=== PATIENT | male | born 1970 | race Caucasian/White ===

== ENCOUNTER 2016-12-02 17:26 | Emergency (ER) | payer OTHER ==
--- NOTE | 2016-12-02 18:28 | ED CLINICAL REPORT ---
Clinical Report - Physicians/Mid Levels [facility] [address] [place] [address] 12/02/2016 17:26 [id number] Time Seen: 17:42 Dec 02 2016. Arrived- By private vehicle. Historian- patient. HISTORY OF PRESENT ILLNESS Chief Complaint: Injury to right knee. The injury happened just prior to arrival. Occurred at home. The patient sustained a laceration from a saw. Patient is experiencing mild pain. No other injury. REVIEW OF SYSTEMS The patient sustained a laceration. No swelling, tingling, weakness, numbness or suspected foreign body. He has no pain on weight bearing. All systems otherwise negative, except as recorded above. PAST HISTORY Tetanus immunization status is unknown. Problems: no known problems. Medications: FLUoxetine HCl Oral 20 mg, at bedtime. Simvastatin Oral 20 mg, daily. Allergies: No Known Drug Allergy. ADDITIONAL NOTES The nursing notes have been reviewed. PHYSICAL EXAM Vital Signs: 12/02/2016 17:35 BP: 107/84. HR: 84. RR: 18. O2 saturation: 97%. Temp: 98.5 F. Pain level now: 0/10. Appearance: Alert. No acute distress. Eyes: Eyes normal inspection. Neck: Normal inspection. CVS: Normal heart rate and rhythm. Respiratory: No respiratory distress. Skin: Skin warm. Normal skin color. Extremities: Left knee: mild tenderness and subcutaneous laceration. SEE LACERATION PROCEDURE NOTE. Gait: Normal gait. Neuro, Vascular and Tendons: Vascular status intact. Sensation intact. Motor intact. Neuro: Oriented X 3. No motor deficit. No sensory deficit. PROGRESS AND PROCEDURES Laceration Repair: Location: left knee. Length: 7 cm. Complexity: simple (local anesthesia used and sutured). Wound depth/shape- subcutaneous and linear. Wound is clean. Distal neuro/vascular/tendon status normal. Local anesthesia provided using 2% lidocaine. Prepped with Hibiclens. Wound explored, cleansed, irrigated and examined to the base in bloodless field extensively with normal saline. Closure of skin: interrupted 4-0 (9 sutures). Post-procedure: he is stable and there are no complications. Bleeding is controlled and neuro-vascular status is intact distal to the wound. Dressing applied. Tetanus immunization up-to-date. Estimated blood loss: 1 mL. Course of Care: Tdap Patient is stable. Patient/family counseled. Disposition: Discharged. Condition: stable and improved. CLINICAL IMPRESSION Single deep laceration to the left knee.No foreign body present. INSTRUCTIONS Protect wound and keep wound area clean. Change dressing twice daily. Keep wounds dry. You may wash wounds briefly, then dry. Apply neosporin twice daily. Sutures should be removed in ten days. You may walk and bear weight as tolerated. (Avoid bending the knee until stitches removed.). Warnings: TETANUS: You were given a tetanus shot during your visit. Make a note for future reference. GENERAL WARNINGS: Return or contact your physician immediately if your condition worsens or changes unexpectedly, if not improving as expected, or if other problems arise. Your Current Medications: CONTINUE TAKING THE FOLLOWING MEDICATIONS: FLUoxetine HCl Oral : 20 mg at bedtime. Simvastatin Oral : 20 mg daily. OTC Medications: Acetaminophen (available over the counter): take according to label instructions. Follow-up: Follow up with your doctor in ten days. Call for an appointment. Understanding of the discharge instructions verbalized by patient and family. (Electronically signed by Henry Lee MD 12/05/2016 23:48)
--- NOTE | 2016-12-02 18:28 | ED NURSING NOTES ---
Clinical Report - Nurses [facility] [address] [place] [address] 12/02/2016 17:26 Patient: KASEY CASTRO TRIAGE Acuity: LEVEL 4. Chief Complaint: INJURY TO LEFT KNEE. --17:40 Christy Caicedo R.N. 17:35 12/02/16. BP: 107/84. HR: 84. RR: 18. O2 saturation: 97%. Temp: 98.5 F. Pain level now: 0/10. --17:40 Christy Caicedo R.N. Weight: 90.7 kg stated. Height/Length: 72 inches Per Patient. BMI: 27.1. --17:39 Christy Caicedo R.N. Medications FLUoxetine HCl Oral 20 mg, at bedtime. Simvastatin Oral 20 mg, daily. --17:38 Christy Caicedo R.N. Allergies No Known Drug Allergy. --17:37 Christy Caicedo R.N. History Arrived by private vehicle. Historian: patient. Accompanied by spouse. This occurred just prior to arrival. He sustained a laceration (2 inch lac to left knee from saw. good distal CSM's). No trouble walking. PAST MEDICAL HX: Negative. Tetanus status: unknown. SURGERY HX: Right and left knee surgery. SOCIAL HX: Never smoker. No alcohol use or drug use. --17:40 Christy Caicedo R.N. PROBLEMS: no known problems. Interventions ID band on patient. To treatment room. --17:40 Christy Caicedo R.N. PHYSICAL ASSESSMENT 17:35. GENERAL / NEURO / PSYCH: Oriented X 4. Alert. Appears in no acute distress. EXTREMITIES: Capillary refill is less than 2 seconds in the extremities. Extremity pulses are within normal limits. Extremities exhibit normal ROM. Neuro-vascular status intact to the extremity. Normal gait. Left knee: 3.0 cm laceration with controlled bleeding. No deformity. No limitation in ROM. SKIN: Skin is warm and dry. --18:24 Christy Caicedo R.N. NURSING PROGRESS NOTES 17:40 12/02/16. Patient gowned. Reassurance given. Patient identifiers checked. Call light placed in reach. Side rails up. Bed placed in lowest position. Patient ready for evaluation- chart flagged. --17:40 Christy Caicedo R.N. 17:40. Care transferred and report given (SRINIVASA Dinh). --18:24 Christy Caicedo R.N. 18:27 12/02/2016 [id number] PERTUSSIS IM 0.5 mL given. (Lot#: [id number], expiration date: 08/02/2018, Range Scientist: sanofi pasteur). Given in the right deltoid. Allergies verified and confirmed 5 rights. --18:33 Marie Rodgers R.N. 18:24 12/02/16. BP: 123/78. HR: 83. RR: 18. O2 saturation: 96%. Temp: 98.4 F. Pain level now 0/10. --18:41 Marie Rodgers R.N. Applied dressing consisting of 4x4 gauze, following the application of antibiotic ointment. Secured with kerlix. --18:42 Marie Rodgers R.N. DISPOSITION / DISCHARGE Departure time: 18:43 Dec 02 2016. Condition at departure: improved. No learning barriers present. Discharge instructions provided and reviewed with the patient. Reviewed warnings. Reviewed medication(s). Treatments reviewed. Reviewed referrals. Patient verbalized understanding. Written instructions provided in Swedish. The patient was discharged home and accompanied by spouse. He left the Emergency Department ambulatory and via private vehicle. Family member driving. --18:43 Marie Rodgers R.N. 18:24 12/02/16. BP: 123/78. HR: 83. RR: 18. O2 saturation: 96%. Temp: 98.4 F. Pain level now 0/10. --18:43 Marie Rodgers R.N. Locked/Released at 12/02/2016 19:08 by Marie Rodgers R.N.
--- NOTE | 2016-12-02 18:28 | ED ORDER SUMMARY ---
..... Patient: KASEY CASTRO OrderSheet [facility] VisitID: [id number] [address] [place] [address] 46y, M Registration Date/Time: 12/02/2016 ORDER SHEET Weight: 90.7 kg (stated) Allergies: No Known Drug Allergy GENERAL ORDERS: MEDICATION ORDERS: Qbqeewj-Hvoxsz-Ivvcv Pertussis IM 0.5 mL (NOW) (18:26 12/02/2016 LWhalen R.N. verbal order read back to Peter ONEAL) (18:33 LWhalen R.N.) IV FLUIDS: ORDER SHEET NOTES: [Electronically signed by Marie Rodgers R.N. (19:08 12/02/2016)] [Electronically signed by Henry Lee MD (23:48 12/05/2016)] [Electronically locked/signed by Marie Rodgers R.N. (19:08 12/02/2016)]
--- NOTE | 2016-12-02 18:28 | ED CLINICAL REPORT ---
Clinical Report - Physicians/Mid Levels [facility] [address] [place] [address] 12/02/2016 17:26 [id number] Time Seen: 17:42 Dec 02 2016. Arrived- By private vehicle. Historian- patient. HISTORY OF PRESENT ILLNESS Chief Complaint: Injury to right knee. The injury happened just prior to arrival. Occurred at home. The patient sustained a laceration from a saw. Patient is experiencing mild pain. No other injury. REVIEW OF SYSTEMS The patient sustained a laceration. No swelling, tingling, weakness, numbness or suspected foreign body. He has no pain on weight bearing. All systems otherwise negative, except as recorded above. PAST HISTORY Tetanus immunization status is unknown. Problems: no known problems. Medications: FLUoxetine HCl Oral 20 mg, at bedtime. Simvastatin Oral 20 mg, daily. Allergies: No Known Drug Allergy. ADDITIONAL NOTES The nursing notes have been reviewed. PHYSICAL EXAM Vital Signs: 12/02/2016 17:35 BP: 107/84. HR: 84. RR: 18. O2 saturation: 97%. Temp: 98.5 F. Pain level now: 0/10. Appearance: Alert. No acute distress. Eyes: Eyes normal inspection. Neck: Normal inspection. CVS: Normal heart rate and rhythm. Respiratory: No respiratory distress. Skin: Skin warm. Normal skin color. Extremities: Left knee: mild tenderness and subcutaneous laceration. SEE LACERATION PROCEDURE NOTE. Gait: Normal gait. Neuro, Vascular and Tendons: Vascular status intact. Sensation intact. Motor intact. Neuro: Oriented X 3. No motor deficit. No sensory deficit. PROGRESS AND PROCEDURES Laceration Repair: Location: left knee. Length: 7 cm. Complexity: simple (local anesthesia used and sutured). Wound depth/shape- subcutaneous and linear. Wound is clean. Distal neuro/vascular/tendon status normal. Local anesthesia provided using 2% lidocaine. Prepped with Hibiclens. Wound explored, cleansed, irrigated and examined to the base in bloodless field extensively with normal saline. Closure of skin: interrupted 4-0 (9 sutures). Post-procedure: he is stable and there are no complications. Bleeding is controlled and neuro-vascular status is intact distal to the wound. Dressing applied. Tetanus immunization up-to-date. Estimated blood loss: 1 mL. Course of Care: Tdap Patient is stable. Patient/family counseled. Disposition: Discharged. Condition: stable and improved. CLINICAL IMPRESSION Single deep laceration to the left knee.No foreign body present. INSTRUCTIONS Protect wound and keep wound area clean. Change dressing twice daily. Keep wounds dry. You may wash wounds briefly, then dry. Apply neosporin twice daily. Sutures should be removed in ten days. You may walk and bear weight as tolerated. (Avoid bending the knee until stitches removed.). Warnings: TETANUS: You were given a tetanus shot during your visit. Make a note for future reference. GENERAL WARNINGS: Return or contact your physician immediately if your condition worsens or changes unexpectedly, if not improving as expected, or if other problems arise. Your Current Medications: CONTINUE TAKING THE FOLLOWING MEDICATIONS: FLUoxetine HCl Oral : 20 mg at bedtime. Simvastatin Oral : 20 mg daily. OTC Medications: Acetaminophen (available over the counter): take according to label instructions. Follow-up: Follow up with your doctor in ten days. Call for an appointment. Understanding of the discharge instructions verbalized by patient and family. (Electronically signed by Henry Lee MD 12/05/2016 23:48)
--- NOTE | 2016-12-02 18:28 | ED NURSING NOTES ---
Clinical Report - Nurses [facility] [address] [place] [address] 12/02/2016 17:26 Patient: KASEY CASTRO TRIAGE Acuity: LEVEL 4. Chief Complaint: INJURY TO LEFT KNEE. --17:40 Christy Caicedo R.N. 17:35 12/02/16. BP: 107/84. HR: 84. RR: 18. O2 saturation: 97%. Temp: 98.5 F. Pain level now: 0/10. --17:40 Christy Caicedo R.N. Weight: 90.7 kg stated. Height/Length: 72 inches Per Patient. BMI: 27.1. --17:39 Christy Caicedo R.N. Medications FLUoxetine HCl Oral 20 mg, at bedtime. Simvastatin Oral 20 mg, daily. --17:38 Christy Caicedo R.N. Allergies No Known Drug Allergy. --17:37 Christy Caicedo R.N. History Arrived by private vehicle. Historian: patient. Accompanied by spouse. This occurred just prior to arrival. He sustained a laceration (2 inch lac to left knee from saw. good distal CSM's). No trouble walking. PAST MEDICAL HX: Negative. Tetanus status: unknown. SURGERY HX: Right and left knee surgery. SOCIAL HX: Never smoker. No alcohol use or drug use. --17:40 Christy Caicedo R.N. PROBLEMS: no known problems. Interventions ID band on patient. To treatment room. --17:40 Christy Caicedo R.N. PHYSICAL ASSESSMENT 17:35. GENERAL / NEURO / PSYCH: Oriented X 4. Alert. Appears in no acute distress. EXTREMITIES: Capillary refill is less than 2 seconds in the extremities. Extremity pulses are within normal limits. Extremities exhibit normal ROM. Neuro-vascular status intact to the extremity. Normal gait. Left knee: 3.0 cm laceration with controlled bleeding. No deformity. No limitation in ROM. SKIN: Skin is warm and dry. --18:24 Christy Caicedo R.N. NURSING PROGRESS NOTES 17:40 12/02/16. Patient gowned. Reassurance given. Patient identifiers checked. Call light placed in reach. Side rails up. Bed placed in lowest position. Patient ready for evaluation- chart flagged. --17:40 Christy Caicedo R.N. 17:40. Care transferred and report given (SRINIVASA Dinh). --18:24 Christy Caicedo R.N. 18:27 12/02/2016 [id number]-HMEKG PERTUSSIS IM 0.5 mL given. (Lot#: [id number], expiration date: 08/02/2018, Test Design Engineer: sanofi pasteur). Given in the right deltoid. Allergies verified and confirmed 5 rights. --18:33 Marie Rodgers R.N. 18:24 12/02/16. BP: 123/78. HR: 83. RR: 18. O2 saturation: 96%. Temp: 98.4 F. Pain level now 0/10. --18:41 Marie Rodgers R.N. Applied dressing consisting of 4x4 gauze, following the application of antibiotic ointment. Secured with kerlix. --18:42 Marie Rodgers R.N. DISPOSITION / DISCHARGE Departure time: 18:43 Dec 02 2016. Condition at departure: improved. No learning barriers present. Discharge instructions provided and reviewed with the patient. Reviewed warnings. Reviewed medication(s). Treatments reviewed. Reviewed referrals. Patient verbalized understanding. Written instructions provided in Greek. The patient was discharged home and accompanied by spouse. He left the Emergency Department ambulatory and via private vehicle. Family member driving. --18:43 Marie Rodgers R.N. 18:24 12/02/16. BP: 123/78. HR: 83. RR: 18. O2 saturation: 96%. Temp: 98.4 F. Pain level now 0/10. --18:43 Marie Rodgers R.N. Locked/Released at 12/02/2016 19:08 by Marie Rodgers R.N.
--- NOTE | 2016-12-02 18:28 | ED ORDER SUMMARY ---
..... Patient: KASEY CASTRO OrderSheet [facility] VisitID: [id number] [address] [place] [address] 46y, M Registration Date/Time: 12/02/2016 ORDER SHEET Weight: 90.7 kg (stated) Allergies: No Known Drug Allergy GENERAL ORDERS: MEDICATION ORDERS: Qlqmpih-Opliow-Ohfyt Pertussis IM 0.5 mL (NOW) (18:26 12/02/2016 LWhalen R.N. verbal order read back to Peter ONEAL) (18:33 LWhalen R.N.) IV FLUIDS: ORDER SHEET NOTES: [Electronically signed by Marie Rodgers R.N. (19:08 12/02/2016)] [Electronically signed by Henry Lee MD (23:48 12/05/2016)] [Electronically locked/signed by Marie Rodgers R.N. (19:08 12/02/2016)]
--- NOTE | 2016-12-05 23:49 | ED MED RECONCILIATION SUMMARY ---
Patient: KASEY CASTRO Medication Reconciliation Report [facility] VisitID: [id number] [address] [place] [address] 46y, M Registration Date/Time: 12/02/2016 Weight: 90.7 kg Height/Length: 72 in. BMI: 27.1 ALLERGIES: No Known Drug Allergy The patient's Home Medications are listed below: CONTINUE TAKING THE FOLLOWING MEDICATIONS: FLUoxetine HCl Oral 20 mg, at bedtime Simvastatin Oral 20 mg, daily The source(s) of the original Home Medication information: Not obtained. The following Medications were given to the patient in the Emergency Department: [id number] PERTUSSIS [IM] IM 0.5 mL, administered: 12/02/2016 6:27:00 PM The following Medications were prescribed to the patient: Acetaminophen (available over the counter): take according to label instructions. -- Henry Lee MD
--- NOTE | 2016-12-05 23:49 | ED DISCHARGE INSTRUCTIONS ---
Patient: KASEY CASTRO General Instructions [facility] VisitID: [id number] [place] [address] 46y, M Registration Date/Time: 12/02/2016 Single deep laceration to the left knee.No foreign body present. INSTRUCTIONS Protect wound and keep wound area clean. Change dressing twice daily. Keep wounds dry. You may wash wounds briefly, then dry. Apply neosporin twice daily. Sutures should be removed in ten days. You may walk and bear weight as tolerated. (Avoid bending the knee until stitches removed.). Warnings: TETANUS: You were given a tetanus shot during your visit. Make a note for future reference. GENERAL WARNINGS: Return or contact your physician immediately if your condition worsens or changes unexpectedly, if not improving as expected, or if other problems arise. Your Current Medications: CONTINUE TAKING THE FOLLOWING MEDICATIONS: FLUoxetine HCl Oral : 20 mg at bedtime. Simvastatin Oral : 20 mg daily. OTC Medications: Acetaminophen (available over the counter): take according to label instructions. Follow-up: Follow up with your doctor in ten days. Call for an appointment. Understanding of the discharge instructions verbalized by patient and family. ADDITIONAL INFORMATION Laceration (All Closures) Alaceration is a cut through the skin. This will usually require stitches (sutures) or shaka if it is deep. Minor cuts may be treated with a surgical tape closure orskin glue. Home care The following guidelines will help you care for your laceration at home: Extremity, face, or trunk wounds Keep the wound clean and dry. If a bandage was applied and it becomes wet or dirty, replace it. Otherwise, leave it in place for the first 24 hours. If stitches or shaka were used, clean the wound daily. After removing the bandage, wash the area with soap and water. Use a wet cotton swab to loosen and remove any blood or crust that forms. The doctor may prescribe an antibiotic cream or ointment to prevent infection. Do not stop taking this medication until you have finished the prescribed course or the doctor tells you to stop. The doctor may also prescribe medications for pain. Follow the doctors instructions for taking these medications. You may remove the bandage to shower as usual after the first 24 hours, but do not soak the area in water (no swimming) until the stitches or shaka are removed. If surgical tape was used, keep the area clean and dry. If it becomes wet, blot it dry with a towel. If skin glue was used, do not scratch, rub, or pick at the adhesive film. Do not place tape directly over the film. Do not apply liquid, ointment, or creams to the wound while the film is in place. Do not clean the wound with peroxide and do not apply ointments. Avoid activities that cause heavy sweating until the film has fallen off. Protect the wound from prolonged exposure to sunlight or tanning lamps. You may shower as usual but do not soak the wound in water (no baths or swimming). The film will fall off by itself in 510 days. Scalp wounds During the first two days, you may carefully rinse your hair in the shower to remove blood, glass or dirt particles. After two days, you may shower and shampoo your hair normally. Do not soak your scalp in the tub or go swimming until the stitches or shaka have been removed. Talk with your doctor before applying any antibiotic ointment to the wound. Mouth wounds Eat soft foods to reduce pain. If the cut is inside of your mouth, clean by rinsing after each meal and at bedtime with a mixture of equal parts water and hydrogen peroxide (do not swallow!). Or, you can use a cotton swab to directly apply hydrogen peroxide onto the cut. Mouth wounds can be painful when eating. You may use an rylw-wxs-ipzeqia local numbing solution for pain relief. If this is not available, you may use any numbing solution for teething babies. You may apply this directly to the sores with a cotton-tip swab or with your finger. Follow-up care Follow up with your health care provider. Most skin wounds heal within ten days. Mouth and facial wounds heal within five days. However, even with proper treatment, a wound infection may sometimes occur. Therefore, you should check the wound daily for signs of infection listed below. Stitches should be removed from the face within five days; stitches and shaka should be removed from other parts of the body within 714 days. If dissolving stitches were used in the mouth, these will fall out or dissolve without the need for removal. If tape closures were used, remove them yourself if they have not fallen off after 7 days. Ifskin glue was used, the film will fall off by itself in 510 days. When to seek medical care Get prompt medical attention if any of these occur: Bleeding not controlled by direct pressure Signs of infection, including increasing pain in the wound, increasing wound redness or swelling, or pus coming from the wound Fever of 100.4F (38C) or higher, or as directed by your health care provider Stitches or shaka come apart or fall out or surgical tape falls off before 7 days Wound edges re-open Bandage Change If the bandage becomes wet or dirty, replace it. Otherwise, leave it in place for the first 24 hours. Then once a day: After removing the bandage, wash the area with soap and water. Use a wet cotton swab to loosen and remove any blood or crust that forms on the wound. After cleaning, apply a thin layer of antibiotic ointment or cream. Reapply the bandage. You may shower as usual after the first 24 hours. If the bandage is on an arm or leg, cover it with a plastic bag rubber banded at both ends before showering. No tub baths or swimming until the bandage is removed and the wound healed (at least 7 days). Laceration (All Closures) Alaceration is a cut through the skin. This will usually require stitches (sutures) or shaka if it is deep. Minor cuts may be treated with a surgical tape closure orskin glue. Home care The following guidelines will help you care for your laceration at home: Extremity, face, or trunk wounds Keep the wound clean and dry. If a bandage was applied and it becomes wet or dirty, replace it. Otherwise, leave it in place for the first 24 hours. If stitches or shaka were used, clean the wound daily. After removing the bandage, wash the area with soap and water. Use a wet cotton swab to loosen and remove any blood or crust that forms. The doctor may prescribe an antibiotic cream or ointment to prevent infection. Do not stop taking this medication until you have finished the prescribed course or the doctor tells you to stop. The doctor may also prescribe medications for pain. Follow the doctors instructions for taking these medications. You may remove the bandage to shower as usual after the first 24 hours, but do not soak the area in water (no swimming) until the stitches or shaka are removed. If surgical tape was used, keep the area clean and dry. If it becomes wet, blot it dry with a towel. If skin glue was used, do not scratch, rub, or pick at the adhesive film. Do not place tape directly over the film. Do not apply liquid, ointment, or creams to the wound while the film is in place. Do not clean the wound with peroxide and do not apply ointments. Avoid activities that cause heavy sweating until the film has fallen off. Protect the wound from prolonged exposure to sunlight or tanning lamps. You may shower as usual but do not soak the wound in water (no baths or swimming). The film will fall off by itself in 510 days. Scalp wounds During the first two days, you may carefully rinse your hair in the shower to remove blood, glass or dirt particles. After two days, you may shower and shampoo your hair normally. Do not soak your scalp in the tub or go swimming until the stitches or shaka have been removed. Talk with your doctor before applying any antibiotic ointment to the wound. Mouth wounds Eat soft foods to reduce pain. If the cut is inside of your mouth, clean by rinsing after each meal and at bedtime with a mixture of equal parts water and hydrogen peroxide (do not swallow!). Or, you can use a cotton swab to directly apply hydrogen peroxide onto the cut. Mouth wounds can be painful when eating. You may use an euey-epd-uliroqt local numbing solution for pain relief. If this is not available, you may use any numbing solution for teething babies. You may apply this directly to the sores with a cotton-tip swab or with your finger. Follow-up care Follow up with your health care provider. Most skin wounds heal within ten days. Mouth and facial wounds heal within five days. However, even with proper treatment, a wound infection may sometimes occur. Therefore, you should check the wound daily for signs of infection listed below. Stitches should be removed from the face within five days; stitches and shaka should be removed from other parts of the body within 714 days. If dissolving stitches were used in the mouth, these will fall out or dissolve without the need for removal. If tape closures were used, remove them yourself if they have not fallen off after 7 days. Ifskin glue was used, the film will fall off by itself in 510 days. When to seek medical care Get prompt medical attention if any of these occur: Bleeding not controlled by direct pressure Signs of infection, including increasing pain in the wound, increasing wound redness or swelling, or pus coming from the wound Fever of 100.4F (38C) or higher, or as directed by your health care provider Stitches or shaka come apart or fall out or surgical tape falls off before 7 days Wound edges re-open You have been given the following additional information: Laceration, All Dressing Change Laceration, All You may walk and bear weight as tolerated. (Electronically signed by Hnery Lee MD 12/05/2016 23:48)
--- NOTE | 2016-12-05 23:49 | ED MED RECONCILIATION SUMMARY ---
Patient: KASEY CASTRO Medication Reconciliation Report [facility] VisitID: [id number] [address] [place] [address] 46y, M Registration Date/Time: 12/02/2016 Weight: 90.7 kg Height/Length: 72 in. BMI: 27.1 ALLERGIES: No Known Drug Allergy The patient's Home Medications are listed below: CONTINUE TAKING THE FOLLOWING MEDICATIONS: FLUoxetine HCl Oral 20 mg, at bedtime Simvastatin Oral 20 mg, daily The source(s) of the original Home Medication information: Not obtained. The following Medications were given to the patient in the Emergency Department: [id number]-[id number]-OSDQZ PERTUSSIS [IM] IM 0.5 mL, administered: 12/02/2016 6:27:00 PM The following Medications were prescribed to the patient: Acetaminophen (available over the counter): take according to label instructions. -- Henry Lee MD
--- NOTE | 2016-12-05 23:49 | ED MAR SUMMARY ---
..... Medication Administration Record [facility] [address] [place] [address] Patient: KASEY CASTRO Visit ID: [id number] 46y, M Weight: 90.7 kg Height/Length: 72 in BMI: 27.1 ALLERGIES: No Known Drug Allergy Given 18:27 12/02/2016 Marie Rodgers R.N. Medication Administered: KIBYIDE-IDRFLS-OTYQK PERTUSSIS [IM], Dose: 0.5 mL IM. Medication Ordered: Scxmtbh-Jxqeqn-Ackio Pertussis IM 0.5 mL (NOW).
--- NOTE | 2016-12-05 23:49 | ED MAR SUMMARY ---
..... Medication Administration Record [facility] [address] [place] [address] Patient: KASEY CASTRO Visit ID: [id number] 46y, M Weight: 90.7 kg Height/Length: 72 in BMI: 27.1 ALLERGIES: No Known Drug Allergy Given 18:27 12/02/2016 Marie Rodgers R.N. Medication Administered: LEPXBOQ-XBBBBP-EORGL PERTUSSIS [IM], Dose: 0.5 mL IM. Medication Ordered: Aqarlvw-Yiyoop-Oohfr Pertussis IM 0.5 mL (NOW).
== END 2016-12-02 18:45 | disposition home or self-care (01) ==
LOC: ED SRH 17:26
DX: S81.011A Laceration without foreign body, right knee, initial encounter (principal); W27.0XXA Contact with workbench tool, initial encounter; Y92.009 Unspecified place in unspecified non-institutional (private) residence as the place of occurrence of the external cause; Y99.9 Unspecified external cause status; Y93.9 Activity, unspecified; Z79.899 Other long term (current) drug therapy